=== PATIENT | female | born 1955 | race American Indian/Alaskan Native ===

== ENCOUNTER 2018-07-15 11:13 | Outpatient (CLI) | payer OTHER ==
[2018-07-15 12:33] LABS: Blood Urea Nitrogen 18 mg/dL (7-17)
--- NOTE | 2018-07-15 14:14 | Cat Scan Report ---
FINAL REPORT EXAM: CT ABDOMEN PELVIS W CON HISTORY: COMPRESSION OF VEIN The the TECHNIQUE: CT examination of the ABDOMEN after IV contrast CT examination of the PELVIS after IV contrast PRIORS: None. FINDINGS: Bilateral hip arthroplasty. Metal artifact limits examination. Degenerative change in the regional [place]. No evidence of acute fracture. Slight spinal curvature with right apex convex at the thoracol umbar junction. Normal-appearing liver, gallbladder with small mural fold, adrenals, pancreas, and spleen. Intact nor mal caliber abdominal aorta with slight calcified atherosclerotic plaque. Normal caliber IVC. Aorta, IVC, and visualized pelvic veins appear patent. SMV and portal vein appear patent. A nonspecific, smoothly marginated, low density, simple appearing right renal lesion is statistically most likely a cyst. Otherwise normal-appearing kidneys. No hydronephrosis. Normal caliber proximal u reters. Mid and distal ureters obscured. Very small fat containing umbilical hernia. No visible inguinal hernia. No retroperitoneal adenopathy . No evidence of mesenteric mass. Normal-appearing stomach and duodenum. No small bowel distention in the abdomen and pelvis. Pelvic cul-de-sac, urinary bladder, rectum, adnexae, uterine region, and lower pelvis obscured by met al artifact. This limits the examination. Visible portion of sigmoid colon suggest slight diverticulosis. No visible acute inflammation. No gross ascites, free air, or colonic distention. Normal-appearing terminal ileum and visible portio n of appendix. Moderate stool from cecum to sigmoid suggestive of constipation. IMPRESSION: Pelvis component limited by metal artifact from bilateral hip arthroplasty Moderate stool and colonic caliber prominence from cecum to sigmoid suggestive constipation Slight diverticulosis visible portion of sigmoid colon No CT visualization of venous compression
== END 2018-07-15 11:14 | disposition home or self-care (01) ==
LOC: CT 11:13
PROVIDERS: ATTEND Radiology Diagnostic Radiology
DX: K57.30 Diverticulosis of large intestine without perforation or abscess without bleeding (principal); K42.9 Umbilical hernia without obstruction or gangrene; E78.00 Pure hypercholesterolemia, unspecified; M19.90 Unspecified osteoarthritis, unspecified site; Z87.891 Personal history of nicotine dependence
CPT/HCPCS: 36415; 74177; 82565; 84520; Q9967